=== PATIENT | male | born 1980 | race Caucasian/White ===

== ENCOUNTER 2017-01-25 15:15 | Emergency (ER) | payer OTHER ==
[~2017-01-25] VITALS: Ht 182.9 cm; Wt 123.4 kg
[2017-01-25 15:27] VITALS: Ht 182.9 cm; Wt 123.4 kg
[2017-01-25] MEDS ORDERED: LEVO75TA PO (16:20)
[2017-01-25] MEDS ORDERED: ATOR-22 PO (16:21)
[2017-01-25] MEDS ORDERED: IBUPROFEN 600 MG TAB PO STA (16:35)
[2017-01-25 16:54] VITALS: BP 132/75; PULSE 64; O2SAT 95
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
== END 2017-01-25 16:50 | disposition home or self-care (01) ==
LOC: EDBD 15:15 → C.EDB 15:16
DX: S40.012A Contusion of left shoulder, initial encounter (principal); S20.212A Contusion of left front wall of thorax, initial encounter; M54.9 Dorsalgia, unspecified; S00.81XA Abrasion of other part of head, initial encounter; Z79.899 Other long term (current) drug therapy; Z82.49 Family history of ischemic heart disease and other diseases of the circulatory system; V43.52XA Car driver injured in collision with other type car in traffic accident, initial encounter; S80.02XA Contusion of left knee, initial encounter